=== PATIENT | male | born 1985 | race Caucasian/White ===

== ENCOUNTER 2017-05-22 00:04 | Emergency (ER) | payer OTHER ==
--- NOTE | 2017-05-22 00:20 | ERNOTE ---
Psychological HPI - Date Date of Service: 05/22/17 - General Chief Complaint: Psychiatric Problem Source: Reports: patient - Immun/Allergies/Home Medications Allergies/Adverse Reactions: Allergies pertussis vaccine,fluid [Pertussis Vaccine,Fluid] Allergy (Mild, Verified 00:16) DPT CAUSES RASH hydrocodone bitartrate [From Vicodin] Adverse Reaction (Mild, Verified 05/22/17 00:16) SEDATED Home Medications: HOME MEDICATIONS DULoxetine HCL [Cymbalta] 20 mg PO DAILY 01/04/16 [Last Taken Unknown] oxyCODONE HCL/ACETAMINOPHEN [Percocet 5 MG/325 MG] 1 tab PO Q6H PRN #10 tablet 01/05/16 [Last Taken Unknown] - History of Present Illness Narrative: This is a 31-year-old male who comes to the emergency department by EMS. Apparently the patient was undergoing some stress today. He was at [employer] and cut his left wrist with a razor blade. He says that he doesn't really know why he did it, that was an impulsive decision. He specifically denies being homicidal or suicidal. He denies previous history of suicide attempts. He denies alcohol or drug abuse. The patient says that he has never had suicidal thoughts or hospitalizations in the past. The stressor for the patient is that his girlfriend of 5 years and him broke up today. He was living with her and does not know where he will be living. The patient has grandparents in town that he believes would be willing to let him stay with them. Psychiatrist Time Seen by Provider: 05/22/17 00:16 Review of Systems - Review of Systems Constitutional: Present: no symptoms reported EYE: Present: no symptoms reported ENT: Present: no symptoms reported Respiratory: Present: no symptoms reported Cardiology: Present: no symptoms reported Gastrointestinal/Abdominal: Present: no symptoms reported Genitourinary: Present: no symptoms reported Musculoskeletal: Present: no symptoms reported Skin: Present: See HPI Neurological: Present: no symptoms reported Endocrine: Present: no symptoms reported - Patient's Past Medical History Patient History - Medical: Anxiety Patient History - Cardiac/Respiratory: No pertinent hx Patient History - Cancer: No Hx of Cancer Patient History - Surgical Procedures: Other Patient History - Other: None - Family History Mother Family History - Medical: No pertinent hx Family History - Cardiac/Respiratory: No pertinent hx Father Family History - Medical: No pertinent hx Family History - Cardiac/Respiratory: No pertinent hx Grandmother-Maternal Family History - Medical: No pertinent hx Family History - Cardiac/Respiratory: Hypertension - Social History Living Situations: home Abuse History: No History of abuse Psych History: Hx of Anxiety Alcohol Use: none Drug Use: none - Immunizations Immunizations Up to Date: Yes Hx Pneumococcal Vaccination: No History of Influenza Vaccine: No Psychological Exam - Exam General Appearance: Present: wd/wn, alert, no apparent distress Head Exam: Present: normal inspection, no evidence of injury Neurological: Present: other - intrinsic and extrinsic muscles of the hand are all normal. Sensation is normal Thoughts/Hallucinations: Present: normal thought pattern, no apparent hallucination, normal mood /affect. Absent: auditory hallucinations, delusions , grandiose, visual hallucinations Behavior/Eye Contact/Speech: Present: normal speech ENT Exam normal except (see below): Yes Eye Exam: Normal inspection: bilateral, PERRL: bilateral, EOMI: bilateral Ears, Nose, Throat: Present: normal ENT inspection, normal pharynx Neck: Present: normal inspection, nontender Respiratory: Present: no respiratory distress, normal breath sounds, lungs clear Cardiovascular/Chest: Present: regular rate, rhythm, no murmur Gastrointestinal/Abdominal: Present: normal bowel sounds, nontender, soft Back Exam: Present: normal inspection, normal range of motion, no CVA tenderness Extremity Exam: Present: other - patient has a laceration from the proximal palmar crease of the left hand on the ventral aspect proximally angling towards the little finger side of the forearm. The superficial fascia is exposed but not penetrated. There are no exposed tendons or nerves. Bleeding is controlled. Skin Exam: Present: other - laceration as described Lymphatic Exam: Present: no adenopathy ED Progress - Vital Signs Patient's Vital Signs:: I have reviewed the patient's vital signs. Vital Signs: Vital Signs 05/22/17 00:08 Temperature 36.4 C L Pulse Rate 92 Respiratory 14 Rate Blood Pressure 154/98 O2 Sat by Pulse 94 Oximetry - Progress/Reassessment Chief Complaint: Psychiatric Problem Procedures Left Anterior Distal Wrist Comment: The area was anesthetized with 4 mL of 1% lidocaine with epinephrine. It was then copiously irrigated with saline under power. Betadine was used to sterilize the field. I then closed the wound using a single running 5-0 nylon suture. Excellent reapproximation of the skin. Patient tolerated procedure well. Neurovascularly intact afterwards Departure Clinical Impression: Laceration - Departure Disposition: Home self-care Condition: Good Instructions: Laceration Care, Adult, [id number] Additional Instructions: As we discussed, he had a laceration to her wrist. I have used stitches to close this up. The stitches will need to be removed in 7-10 days. He should change the bandage over it every day. Keep an eye out for signs of infection: Fever, redness, pus, increased pain would indicate an infection and reasons to return to ER. You have made a verbal contract for safety with me. This means that you will call an ambulance or come to the emergency department if you are starting to have feelings of being out of control or thoughts of harming herself. You are expected to abide by this. I want you to call your psychiatrist. Let them know you were seen in the ER and let them know why. See if they can work him in sooner. If he develop any new concerning symptoms return to the ER.
[2017-05-22] MEDS ORDERED: LIDOCAINE HCL/EPINEPHRINE 30 ML VIAL IJ ONE (00:36)
[2017-05-22 01:09] VITALS: BP 133/96
== END 2017-05-22 01:20 | disposition home or self-care (01) ==
LOC: ER 00:04
PROC: 0JQK0ZZ Repair Left Hand Subcutaneous Tissue and Fascia, Open Approach (ICD-10-PCS; principal; 2017-05-22)
DX: S61.512A Laceration without foreign body of left wrist, initial encounter (principal); X78.8XXA Intentional self-harm by other sharp object, initial encounter; Y92.511 Restaurant or cafe as the place of occurrence of the external cause